=== PATIENT | female | born 1995 | race Caucasian/White ===

== ENCOUNTER 2024-06-15 03:55 | Outpatient (CLI) | payer BC, MEDICAID, SELFPAY ==
[2024-06-15] VITALS (12 sets, daily range): BP systolic 106–125; BP diastolic 71–76; PULSE 66–102; RESP 17; TEMP 36; O2SAT 96–99; BMI 31.7
[2024-06-15 05:13] LABS: Estmated Average Glucose 97
== END 2024-06-15 04:58 | disposition home or self-care (01) ==
LOC: OPOB 03:59 → OBGYN 04:02
PROVIDERS: Family Medicine
DX: O36.8190 Decreased fetal movements, unspecified trimester, not applicable or unspecified (principal); Z3A.00 Weeks of gestation of pregnancy not specified
CPT/HCPCS: 36415; 59025; 83036; 99211

== ENCOUNTER 2024-06-17 09:30 | Inpatient (IN) | payer BC, MEDICAID, SELFPAY ==
--- OUTSIDE RECORDS SUMMARY | 2024-06-15 02:30 | XMS_ITS | Encounter Summary ---
Author Organization [facility] Address [address] [place] [address] Care Team Providers Care Tung Nut Grower Name Role Phone Unavailable Primary Care Provider Unavailabl e Reason for Visit * Reason Comments Problem Patient is measuring past due date. Last heart rate was 141. Current heart rate 118. Patient denies any pain but has not felt the baby move since 2300 last night. This is the patient's 4th , patient has 3 living children. No issues with any of the others and children are all healthy. No pain or discomfort at this time. Encounter Details Date Type Department Care Team (Late st Contact Info) Description 06/15/2024 2:30 AM CDT - 06/15/2024 3:21 AM CDT Emergency [facility] Emergency Medicine [address] [place] [id number] Elver Springer MD [address] [place] [address] Absence of movement (Primary Dx); Presence of heart sounds in third trimester Discharge Disposition: Acute Care Hospital Social History Tobacco Use Types Packs/Day Years Used Date Smoking Tobacco: Never Smokeless Tobacco: Never Tobacco Cessation:Counseling Given: Not Answered Alcohol Use Standard Drinks/Week Comments Not Currently 0 (1 standard drink = 0.6 oz pur e alcohol) Feeling Safe Answer Date Recorded Are you in a relationship wi th someone who hurts you emotionally and/or physically? No 06/15/2024 Estimated Date of Delivery Comme nts Yes 06/10/2024 Sex and Gender Information Value Date Recorded Sex Assigned at Not on file Legal Sex Female 2:29 AM CDT Gender Identity Not on file Sexual Orientation Not on file documented as of this encounter Last Filed Vital Signs Vital Sign Reading Time Taken Comments Blood Pressure 133/88 06/15/2024 2:40 AM CDT Pulse - - Temperature 36.7 C (98 F) 06/15/2024 2:40 AM CDT Respiratory Rate 16 06/15/2024 2:40 AM CDT Oxygen Saturation 99% 06/15/2024 2:40 AM CDT Inhaled Oxygen Concentration - - Weight 100.4 kg (221 lb 6.4 oz) 06/15/2024 2:40 AM CDT Height 177.8 cm (5' 10 ) 06/15/2024 2:40 AM CDT Body Mass Index 31.77 06/15/2024 2:40 AM CDT documented in this encounter Medications at Time of Discharge famotidine (PEPCID) 20 mg tablet Take 20 mg by mouth 2 times daily. sertraline (ZOLOFT) 25 mg tablet Take 25 mg by mouth daily. documented as of this encounter ED Notes * Viola Prakash RN - 06/15/2024 3:20 AM CDT Patient transferred with transport via private vehicle. 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 * Viola Prakash RN - 06/15/2024 3:12 AM CDT Instructed to call Dr. Cornelius on her personal cell by KELLI Rodriguez at [facility] to give her a direct report. * Viola Prakash RN - 06/15/2024 2:44 AM CDT Sharlene James is a 29 y.o. female who arrives to the Emergency Department by private car. 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 Chief Complaint Patient presents with Problem Patient is measuring past due date. Last heart rate was 141. Current heart rate 118. Patient denies any pain but has not felt the baby move since 2300 last night. This is the patient's 4th , patient has 3 living children. No issues with any of the others and children are all healthy. No pain or discomfort at this time. Pain is 0/10. VSS, aaox4, STARK, behavior appropriate to circumstance, no acute distress at this time. Airway patent, self-maintained with even, non-labored respirations. Perfusion within normal limitsfor age. Skin color normal for ethnicity, warm, dry and intact. ID band present. Patient in bed in low position with wheels locked. Patient informed of plan of care. Patient verbalized understanding and in agreement with plan of care, all questions answered. Comfort measures offered. spouse at bedside at this time. Monitors on and audible. Patient placed on pulse ox and blood pressure monitoring. Call light at bedside. Patient encouraged to call with needs. Will continue to monitor. Weapons assessment performed. Education provided regarding facility weapon storage and securement policy. Sharlene James denied possession of any weapons or firearms at this time * Elver Springer MD - 06/15/2024 2:29 AM CDT HISTORY OF PRESENT ILLNESS This lady at 40+5 days weeks presents to the ER stating that since 2300 hrs., she has not felt movement. She denies vaginal bleeding or spontaneous rupture of membrane. She denies abdominal pain, chest pain, shortness of breath or fever. Here in the ER, heart Doppler was done and it was anywhere between 109 and 118. Patient gets her obstetric care at [facility] in [place]. She was last seen yesterday. PAST MEDICAL HISTORY REVIEWED MEDICAL: Patient has no past medical history on file. SURGICAL: Patient has no past surgical history on file. ALLERGIES Patient has no known allergies. PHYSICAL EXAM INITIAL VS BP: 133/88 (06/15/24 0240), Heart Rate: 91 bpm (06/15/24 0240), Resp: 16 (06/15/24 0240), Pulse: (not recorded), Temp: 98 ??F (36.7 ??C) (06/15/24239), Temp src: Oral (06/15/24239), SpO2: 99 % (06/15/24239), Height: 5' 10 (177.8 cm) (06/15/24239), Weight: 100.4 kg (221 lb 6.4 oz) (), BMI (Calculated): (!) 31.76 (06/15/24239) No LMP recorded. Patient is . Physical Exam Vitals and nursing note reviewed. Constitutional: General: She is not in acute distress. Appearance: Normal appearance. She is well-developed. She is not toxic-appearing. HENT: Head: Normocephalic and atraumatic. Eyes: Extraocular Movements: Extraocular movements intact. Conjunctiva/sclera: Conjunctivae normal. Cardiovascular: Rate and Rhythm: Normal rate and regular rhythm. Pulses: Normal pulses. Heart sounds: No murmur heard. Pulmonary: Effort: Pulmonary effort is normal. No respiratory distress. Breath sounds: Normal breath sounds. No rhonchi or rales. Abdominal: General: Bowel sounds are normal. Palpations: Abdomen is soft. Tenderness: There is no abdominal tenderness. Comments: Abdomen is gravid but nontender. FHT is 109-118. Musculoskeletal: Cervical back: Normal range of motion and neck supple. Right lower leg: No edema. Left lower leg: No edema. Skin: General: Skin is warm and dry. Neurological: General: No focal deficit present. Mental Status: She is alert and oriented to person, place, and time. Psychiatric: Behavior: Behavior normal. DIAGNOSTICS LAB: No data to display RADIOLOGY: No orders to display EKG: PROCEDURES Procedures MEDICAL DECISION MAKING AND PLAN OF CARE Medical Decision Making Clinical Scoring & Consults Medical decision making: History as above. Patient is 40 weeks +5 days and states that she has not had any movement since 2300 hrs. Doppler revealed heart rate of 109-118. Given that we have no application assistant in this facility, she will be transferred to [facility] immediately. Meanwhile, while we were getting the heart Doppler, patient noted that she felt some movement. Case discussed with Dr. Ojeda, application assistant on-call at [facility]. He accepted patient in transfer. Discharge Medication List as of 06/15/2024 3:16 AM CONTINUE these medications which have NOT CHANGED Details famotidine (PEPCID) 20 mg tablet Take 20 mg by mouth 2 times daily. sertraline (ZOLOFT) 25 mg tablet Take 25 mg by mouth daily. LAST VS BP: 133/88 (06/15/24239), Heart Rate: 91 bpm (06/15/24239), Resp: 16 (06/15/24239), Pulse: (not recorded), Temp: 98 ??F (36.7 ??C) (06/15/24239), Temp src: Oral (06/15/24239), SpO2: 99 % (06/15/24239) CLINICAL IMPRESSION Final diagnoses: [O36.8190] Absence of movement (Primary) [Z34.93] Presence of heart sounds in third trimester DISPOSITION, EDUCATION AND MEDICATION RECONCILIATION Medications reconciled. See after visit summary for patient education on discharged patients. ED Disposition ED Disposition Transfer Condition Stable User Elver Springer MD Date/Time FriJun 15, 2024 2:55 AM Comment -- ATTESTATION STATEMENTS documented in this encounter Plan of Treatment Not on file documented as of this encounter Visit Diagnoses Diagnosis Absence of movement- Primary Presence of heart sounds in third trimester documented in this encounter
[2024-06-17] VITALS (33 sets, daily range): BP systolic 88–117; BP diastolic 52–80; PULSE 47–85; RESP 16; TEMP 36.2–36.9; O2SAT 98–99; BMI 31.1
--- OUTSIDE RECORDS SUMMARY | 2024-06-17 09:49 | XMS_ITS | Encounter Summary ---
Author Organization [facility] Address [address] [place]: Epic Prelude ADT [place] [address] Care Team Providers Care Pay Clerk Name Role Phone Unavailable Primary Care Provider Unavailabl e Encounter Details Date Type Department Care Team (Latest Contact Info) Description 06/15/2024 Travel Social History Tobacco Use Types Packs/Day Years Used Date Smoking Tobacco: Never Smokeless Tobacco: Never Alcohol Use Standard Drinks/Week Comments Not Currently [...] on file documented as of this encounter Plan of Treatment Not on file documented as of this encounter Visit Diagnoses Not on filedocumented in this encounter
--- OUTSIDE RECORDS SUMMARY | 2024-06-17 09:49 | XMS_ITS | Clinical Summary ---
Author Organization [facility] Address [address] [place] [address] Phone Care Team Providers Care Instruction Assistant Principal Name Role Phone Unavailable Primary Care Provider Unavailabl e Allergies No known active allergies Medications famotidine (PEPCID) 20 mg tablet Take 20 mg by mouth 2 times daily. Active sertraline (ZOLOFT) 25 mg tablet Take 25 mg by mouth daily. Active Encounters Date Type Department Care Team Description 06/15/2024 2:30 AM CDT - 06/15/2024 3:21 AM CDT Emergency [facility] Emergency Medicine [address] [place] [address] Elver Springer MD Absence of movement (Primary Dx); Presence of heart sounds in third trimester Discharge Disposition: Acute Care Hospital 06/15/2024 Travel from Last 3 Months Social History Tobacco Use Types Packs/Day Years [...] on file Sexual Orientation Not on file Last Filed Vital Signs Vital Sign Reading [...] Mass Index 31.77 06/15/2024 2:40 AM CDT Plan of Treatment Health Maintenance Due Date Last Done Comments DTAP/TDAP/TD VACCINES (1 - Tdap) 02/19/2016 HEPATITIS B VACCINES (1 of 3 - 19+ 3-dose series) 02/19/2016 CERVICAL CANCER SCREENING 2018 HPV/Cotest (21-29) 2018 PAP SMEAR 2018 INFLUENZA VACCINE (#1) 2023 HPV VACCINES Aged Out No longer eligi ble based on patient's age to complete this topic RSV VACCINE (60+ or ) (No Doses Required) Completed
[2024-06-17 10:32] LABS: Basophils % 0.4 %; Eosinophils # 0.1 10^3/uL (0.0-0.8); Eosinophils % 1.6 %; Hematocrit 35.6 % (36-47); Lymphocytes # 2.1 10^3/uL (0.8-4.8); Lymphocytes % 27.5 %; Mean Corpuscular HGB Conc 30.3 g/dL (30-55); Mean Corpuscular Hemoglobin 26.5 pg (27-33); Mean Corpuscular Volume 87.3 fl (85-98); Mean Platelet Volume 10.5 fL (7.4-10.4); Monocytes # 0.5 10^3/uL (0.2-0.9); Monocytes % 6.5 %; Neutrophils # 4.79 10^3/uL (1.8-7.7); Neutrophils % 63.6 %; Nucleated Red Blood Cells % 0 %; Platelet Count 262 10^3/cmm (157-399); Red Blood Count 4.08 10^6/uL (3.85-5.65); Red Cell Distribution Width 15.1 % (12.1-15.1); White Blood Count 7.53 10^3/uL (3.29-11.43)
[2024-06-17] MEDS: ceFAZolin 2,000 mg SDV 2000 MG IVP (10:50)
[2024-06-17] MEDS: famotidine 20 mg/2 mL INJ IVP (10:50)
[2024-06-17] MEDS: sodium chloride 0.9% 1,000 ML 999 ML IV (10:50)
[2024-06-17] MEDS: sodium chloride 0.9% 1,000 ML 125 ML IV (11:45)
--- NOTE | 2024-06-17 11:53 | P.HP_ITS ---
Providers/Chief Complaint 2 Admitting Physician: Velma Cornelius MD Primary Care Provider: Velma Cornelius MD Chief Complaint: Need ID/INS History of Present Illness Sharlene James is a 29 year old female G4, P3 at 41 weeks 0 days gestation who is here for scheduled section secondary to macrosomia and postdates. Risk benefits and alternatives of trial of labor versus scheduled section were discussed with her and her yesterday. They wish to proceed with section for baby safety. The was measuring 4336 g and that is with a modified abdominal circumference of 37.9cm. The abdominal circumference was slightly larger than that but any larger measurements would have kicked out the calculations for estimated weight. The patient and her are aware that ultrasound measurements this far in the may not be very accurate and it is possible that the weight estimation is off by a large degree. They would still like to err on the side of caution for The patient was a late transfer to [facility] for care at approximately 23-1/2 weeks gestation. She failed to do her glucose tolerance test. She failed to do 4 times daily glucose testing and lieu of the glucose tolerance test. She failed to do her hemoglobin A1c when it was first requested of her. She failed to keep regular appointments. She failed to do her epidural consult. She refused Pap smear. A hemoglobin A1c was obtained on her couple days ago and it was 5.0 Review of Systems 2 Narrative: The patient denies any bleeding, regular contractions, loss of fluid. She has good movement. Medications/Allergies Home Medications ?Medication ?Instructions ?Recorded ?Confirmed ?Last Taken ?Type famotidine 20 mg tablet 20 mg PO BID 06/15/2406/16/24 20:00 History sertraline 25 mg tablet 25 mg PO DAILY 06/15/24 04/11/1106/16/24 20:00 History Allergies Allergy/AdvReac Type Severity Reaction Status Date / Time No Known Allergies Allergy Verified 06/15/24 04:18 PFSH Acute 2 Female Reproductive History: : 4 Para: 3 Other female reproductive history: First 7 pound 10 ounce female . Second 8 pound 8 ounce male . Third 7 pound 8 ounce male . Patient had gestational diabetes mellitus with her first but was told to just monitor diet. She reported a history of bleeding and a history of retained placenta with #2. Vitals/I&O/Wt Last Vital Signs Temp 97.2 F L 06/17/24 10:56 Pulse 68 06/17/24 11:34 BP 113/75 06/17/24 11:34 O2 Del Method Room Air 06/17/24 10:15 Weight last 48 hrs Weight 98.43 kg Weight 98.43 kg Physical Exam 2 Narrative: Alert and oriented, no acute distress, heart regular rate and rhythm, lungs clear to auscultation bilaterally, abdomen is gravid soft and nontender, extremities have trace edema but no calf tenderness Data 06/17/24 10:15 A&P Assessment and plan (1) macrosomia affecting management of mother, antepartum: After long in office discussion, the patient and her spouse have decided on section for macrosomia. I believe this is a good decision given the estimated weight which is an underestimation also given the large abdominal circumference. Patient did not do her glucose testing during her so it is unknown if she had intermittent hyperglycemia, but her overall hemoglobin A1c was 5.0 as of 2 days ago. (2) Post term at 41 weeks gestation: PDMP PDMP Reviewed: Not Reviewed Attestations 2 Medical Necessity Statement*: Scheduled surgery and routine care Coding Level of Care Code Acute Code for Chg Fwd Diagnoses macrosomia affecting management of mother, antepartum O36.60X0 Post term at 41 weeks gestation O48.0; Z3A.41
--- NOTE | 2024-06-17 12:13 | ANES.PREANE2 ---
Pre-Anesthetic Assessment Height/Weight: Height 1.78 m Weight 98.43 kg Temp Pulse BP O2 Del Method 97.2 F L 85 115/80 Room Air 06/17/24 10:56 06/17/24 12:04 06/17/24 12:04 06/17/24 10:15 Preop Diagnosis: Macrosomia Operation Date: 06/17/24 12:00 Proposed Procedures p Section 21135, P08.1(Not Applicable) - Velma Cornelius MD Was Beta Marcela taken within 24 hours: N/A Was Clonidine taken within 24 hours: N/A Last intake: Intake Last Liquid Date 06/17/24 Last Liquid Time 09:30 Last Solid Date 06/16/24 Last Solid Time 17:00 Social No alcohol and No tobacco Exam alert, oriented x 3, clear to auscultation bilaterally and regular rate & rhythm Airway Submandibular: within normal limits Cervical ROM: within normal limits Mallampati: Class II Dentition: full History/ROS No significant history except as noted and No significant complaints Pulmonary None reported CV/HEM None reported None reported Hepatic None reported GI None reported Metabolic None reported Musc/skel None reported Neuropsych None reported Anesthetic Plan ASA status: 2 Anesthesia: Anesthesia Evaluation and Regional (specify below) Other: SAB Risk of > 500 ml blood loss (7ml/kg in children): No Medications/Allergies Home Medications ?Medication ?Instructions ?Recorded ?Confirmed ?Last Taken ?Type famotidine 20 mg tablet 20 mg PO BID 06/15/24 06/15/24 06/16/24 20:00 History sertraline 25 mg tablet 25 mg PO DAILY 06/15/24 06/15/24 06/16/24 20:00 History Allergies Allergy/AdvReac Type Severity Reaction Status Date / Time No Known Allergies Allergy Verified 06/15/24 04:18 Current Medications Generic Name Dose Route Start Last Admin Trade Name Freq PRN Reason Stop Dose Admin Sodium Chloride 1,000 mls @ 125 mls/hr 06/17/24 10:30 06/17/24 11:45 Sodium Chloride 0.9% IV 125 mls/hr .Q8H MELISSA Administration Sodium Chloride 1,000 mls @ 999 mls/hr 06/17/24 10:22 06/17/24 10:50 Sodium Chloride 0.9% IV 999 mls/hr .Q1H1M PRN Administration Per L&D Rescitation Protocol [facility] Anesthesia Female Reproductive History : 4 Para: 3 Data Anesthesia 06/17/24 10:15 Short CBC 06/17/24 Range/Units 10:15 WBC 7.53 (3.29-11.43) 10^3/uL Hgb 10.80 L (11.27-16.99) g/dL Hct 35.6 L (36-47) % MCV 87.3 (85-98) fl Plt Count 262 (157-399) 10^3/cmm Neut % (Auto) 63.6 % Neut # (Auto) 4.79 (1.8-7.7) 10^3/uL Blood Bank 06/17/24 10:15 Blood Type AB Positive Rho(D) Type Rh positive Antibody Screen Negative
--- NOTE | 2024-06-17 13:16 | P.OP_ITS ---
Operative Report Date of procedure: June 17, 2024 Pre-op diagnosis: macrosomia at 41 weeks 0 days gestation Procedure done: Primary low-transverse section Specimens removed/disposition: Vertex male weight 4090 g, 9 pounds 0 ounces, Apgars 9 and 9 Surgeon: Velma Cornelius MD Estimated blood loss (mL): 500 IV fluids (mL): 1,000 Urine output (mL): 20 Complications: None Procedure: After informed consent the patient was taken to the OR where spinal anesthesia was administered. She was prepped and draped in normal sterile fashion in rajeev zulma supine position with a left lateral tilt. After adequate spinal anesthesia was verified a Pfannenstiel skin incision was made and carried through to the underlying layer of fascia sharply. The fascial incision was then extended laterally using the Mayos. The fascia was grasped with Gracie clamps and the underlying rectus muscles were dissected off taking care to avoid injury to the underlying tissue. The peritoneum was entered bluntly using a hemostat. The surgical site was manually stretched. The bladder blade was inserted. The vesicouterine peritoneum was identified and entered sharply using the Metzenbaums. The bladder flap was created digitally. The bladder blade was then reinserted. Uterine incision was made in a transverse fashion in the lower uterine segment. Amniotic rupture of membranes was done sharply with the scalpel and revealed a copious amount of clear fluid. The infant's head was delivered atraumatically and the rest of the infant immediately followed. The was then bulb suctioned through the mouth and naris. The cord was clamped and cut. The infant was handed to the waiting pediatric team. The placenta was removed using fundal pressure. The uterus was then exteriorized from the abdomen and a dry sponge was used to clear the uterus of clots and debris. Uterine incision was then repaired using 0 chromic in a running locked fashion. A second layer of the same suture was used in an imbricating manner. The uterus was then returned to the abdomen. Irrigation was used to clear the gutters of clots and debris and the uterine incision was reinspected for hemostasis. Attempt was made to reapproximate to the peritoneum using 4-0 Vicryl in a running fashion but the peritoneum kept tearing. The rectus muscles were gently reapproximated using 1 ckojqn-km-ranen stitch. The said fascial tissue was inspected for hemostasis and any small bleeders were coagulated using the Bovie. There was 1 left rectus muscle site that required holding pressure for about 3 minutes. Once it was confirmed to be hemostatic the the fascia was then reapproximated using 0 Vicryl in a running fashion. The subcutaneous tissue was then irrigated. Any small bleeders were coagulated using the Bovie. The subcutaneous tissue was reapproximated using 4-0 Vicryl in a running fashion. The skin was then reapproximated using 4-0 Vicryl in a running fashion on a Brandon needle. Steri-Strips and pressure bandage were applied and patient went to recovery in good condition. Sponge instrument and needle counts were correct.
--- NOTE | 2024-06-17 14:18 | ANE.PACU2 ---
Inpatient post-anesthesia follow up: Airway intact: Yes Vital signs: Temperature 98.4 F Pulse Rate 72 Respiratory Rate 16 Blood Pressure 98/59 Pulse Oximetry Oxygen Delivery Me thod Room Air Oxygen Flow Rate Fraction of Inspir ed Oxygen Hydration adequate: Yes Nausea and vomiting: No Pain level: 1 Mental status: Baseline
--- NOTE | 2024-06-17 18:44 | PC.NURSE ---
Esther beckman rn got patient up to chair for me, and she did well, complete linen change done.
[2024-06-17] MEDS: ketorolac 30 mg/mL INJ IVP (19:20)
[2024-06-17] MEDS: HYDROcodone-acetaminophen 5-325 mg Tablet PO (19:21)
--- NOTE | 2024-06-17 22:44 | PC.NURSE ---
PT requested to have something to eat that was not clear fluids. This RN educated the PT on the reasons and importance of passing gas before transitioning back into a regular diet, along with the safety concerns if failing to do so.
[2024-06-18] MEDS: HYDROcodone-acetaminophen 5-325 mg Tablet PO ×4 (00:47→20:19)
[2024-06-18 01:04] LABS: Hematocrit 26.4 % (36-47); Mean Corpuscular HGB Conc 31.1 g/dL (30-55); Mean Corpuscular Hemoglobin 26.1 pg (27-33); Mean Corpuscular Volume 84.1 fl (85-98); Mean Platelet Volume 9.7 fL (7.4-10.4); Platelet Count 225 10^3/cmm (157-399); Red Blood Count 3.14 10^6/uL (3.85-5.65); White Blood Count 9.69 10^3/uL (3.29-11.43)
[2024-06-18 03:00] VITALS: TEMP 36.6; TEMP 36.7
[2024-06-18] MEDS: ibuprofen 800 mg tablet PO ×4 (03:10→20:19)
[2024-06-18 03:11] VITALS: BP 101/66; PULSE 72
--- NOTE | 2024-06-18 05:44 | PC.NURSE ---
06/18/24 0445 This RN went to PT and attempted to remove catheter , PT declined at this time and requested to wait until the baby was done feeding. This RN told the PT to hit the call light when she was ready.
[2024-06-18 07:36] VITALS: BP 109/72; PULSE 64
[2024-06-18] MEDS: docusate sodium 100 mg Capsule PO ×2 (08:17→15:21)
[2024-06-18] MEDS: ferrous sulfate EC 325 mg Tablet PO ×2 (08:17→15:21)
[2024-06-18] MEDS: PRENATAL VIT NO.130/IRON/FOLIC 1 EACH TABLET PO (08:17)
[2024-06-18 12:21] VITALS: BP 116/68; PULSE 86
--- NOTE | 2024-06-18 14:57 | P.PN_ITS ---
Subjective 2 Subjective: Mother is ambulating and has just passed flatus. Her pain is controlled and she has already showered today. Vitals/I&O/Wt Last Vital Signs Temp 98.0 F 06/18/24 03:00 Pulse 86 06/18/24 12:21 Resp 16 06/17/24 13:50 BP 116/68 06/18/24 12:21 Pulse Ox 99 06/17/24 13:50 O2 Del Method Room Air 06/17/24 10:15 06/17/24 06/18/24 06/18/24 22:59 06:59 14:59 Intake Total 1100 / 4100 950 / 5050 Output Total 475 / 1015 Balance 1100 / 3560 475 / 4035 Weight last 48 hrs Weight 98.43 kg Weight 98.43 kg Physical Exam 2 Narrative: Alert and oriented, sitting up in bedside chair, heart regular rate and rhythm, lungs clear to auscultation bilaterally, abdomen is soft with appropriate postoperative tenderness, incision is clean dry and intact with Steri-Strips in place, extremities have trace edema but no calf tenderness Urinary Catheter Management: Latex Free: Cath Placed During This Visit: yes, but has since been removed by the nurse Reason for Continuing Indwelling Catheter: Decision to DC Catheter Urinary Catheter Date of Insertion: 06/17/24 Urinary Catheter Time of Insertion: 12:20 Date Urinary Catheter Removed: 06/18/24 Time Urinary Catheter Discontinued: 05:50 Data 06/18/24 00:45 A&P Assessment and plan (1) Status post primary low transverse section: Routine and postoperative care. Patient will likely be discharged home tomorrow if still doing well. PDMP PDMP Reviewed: Not Reviewed Attestations 2 Medical Necessity Statement*: Routine and postoperative care. Coding Level of Care Code Acute Code for Chg Fwd Diagnoses Status post primary low transverse section Z98.891
[2024-06-18 15:59] VITALS: BP 107/59; PULSE 79
[2024-06-18 22:06] VITALS: BP 112/64; PULSE 67
[2024-06-19] MEDS: HYDROcodone-acetaminophen 5-325 mg Tablet PO ×4 (00:28→14:47)
[2024-06-19 04:29] VITALS: BP 106/55; PULSE 78
[2024-06-19 10:06] VITALS: BP 127/68; PULSE 98; RESP 18
[2024-06-19] MEDS: PRENATAL VIT NO.130/IRON/FOLIC 1 EACH TABLET PO (10:15)
[2024-06-19] MEDS: docusate sodium 100 mg Capsule PO (10:15)
[2024-06-19] MEDS: ibuprofen 800 mg tablet PO ×2 (10:15→14:47)
--- NOTE | 2024-06-19 12:00 | PM.DCS ---
Discharge Providers Date of Admission: 06/17/24 09:30 Date of Discharge: June 19, 2024 Attending Provider at Admission: Velma Cornelius MD Attending Provider at Discharge: Velma Cornelius MD Primary Care Provider: Velma Cornelius MD Diagnoses at Discharge Discharge Diagnosis (1) Status post primary low transverse section: Status: Acute Reason for Visit Reason for Visit: Need ID/INS Hospital Course Hospital Course This is a 29-year-old G4 now P4 who was admitted for schedule secondary to macrosomia and postdates at 41 weeks 0 days gestation. The patient was noncompliant with obtaining her glucose tolerance testing, obtaining 4 times daily blood sugars, and making recommended OB visits. At 40 weeks 4 days gestation her fundal height was measuring large so she underwent a growth ultrasound which revealed estimated weight greater than the 95th percentile and an abdominal circumference greater than 37 cm. Patient and her and elected to pursue scheduled section which she underwent without any complications. She is postop day #2 doing well. She is ambulating, tolerating a regular diet, has good pain control and is comfortable with discharge home. Physical Exam Narrative: Alert and oriented, sitting in bedside chair, heart regular rate and rhythm, lungs clear to auscultation bilaterally, abdomen is soft with appropriate postoperative tenderness, incision and close is clean dry and intact with Steri-Strips in place, extremities have trace edema but no calf tenderness Urinary Catheter Management: Latex Free: Cath Placed During This Visit: yes, but has since been removed by the nurse Reason for Continuing Indwelling Catheter: Decision to DC Catheter Urinary Catheter Date of Insertion: 06/17/24 Urinary Catheter Time of Insertion: 12:20 Date Urinary Catheter Removed: 06/18/24 Time Urinary Catheter Discontinued: 05:50 Discharge Data Studies Completed and Pending Laboratory Results WBC 9.69 10^3/uL (3.29-11.43) 06/18/24 00:45 RBC 3.14 10^6/uL (3.85-5.65) L 06/18/24 00:45 Hgb 8.20 g/dL (11.27-16.99) L 06/18/24 00:45 Hct 26.4 % (36-47) L 06/18/24 00:45 MCV 84.1 fl (85-98) L 06/18/24 00:45 MCH 26.1 pg (27-33) L 06/18/24 00:45 MCHC 31.1 g/dL (30-55) 06/18/24 00:45 RDW 15.0 % (12.1-15.1) 06/18/24 00:45 Plt Count 225 10^3/cmm (157-399) 06/18/24 00:45 MPV 9.7 fL (7.4-10.4) 06/18/24 00:45 Neut % (Auto) 63.6 % 06/17/24 10:15 Lymph % (Auto) 27.5 % 06/17/24 10:15 Mccracken % (Auto) 6.5 % 06/17/24 10:15 Eos % (Auto) 1.6 % 06/17/24 10:15 Baso % (Auto) 0.4 % 06/17/24 10:15 Neut # (Auto) 4.79 10^3/uL (1.8-7.7) 06/17/24 10:15 Lymph # (Auto) 2.1 10^3/uL (0.8-4.8) 06/17/24 10:15 Mccracken # (Auto) 0.5 10^3/uL (0.2-0.9) 06/17/24 10:15 Eos # (Auto) 0.1 10^3/uL (0.0-0.8) 06/17/24 10:15 Baso # (Auto) 0.0 10^3/uL (0.0-0.1) 06/17/24 10:15 Nucleated RBC % (auto) 0 % 06/17/24 10:15 Nucleated RBCs # 0.0 /100WBC 06/17/24 10:15 Blood Type AB Positive 06/17/24 10:15 Rho(D) Type Rh positive 06/17/24 10:15 Antibody Screen Negative 06/17/24 10:15 Vitals Last Vital Signs Temp 98.0 F 06/18/24 03:00 Pulse 98 06/19/24 10:06 Resp 18 06/19/24 10:06 BP 127/68 06/19/24 10:06 Pulse Ox 99 06/17/24 13:50 O2 Del Method Room Air 06/17/24 10:15 Discharge Plan Discharge Patient Disposition: Home Condition: Stable Prescriptions: New docusate sodium 100 mg Capsule 100 mg PO BID Qty: 60 0RF Rx Instructions: OTC ibuprofen 800 mg Tablet 800 mg PO TID PRN (Reason: Abdominal Discomfort) Qty: 40 0RF hydrocodone-acetaminophen 5-325 mg Tablet 1 - 2 tab PO Q4H PRN (Reason: Moderate To Severe Pain) Qty: 15 0RF Continued famotidine 20 mg Tablet 20 mg PO BID sertraline 25 mg Tablet 25 mg PO DAILY Discharge Orders: Discharge Order (Routine); Ordered 06/19/24 Ordered By: Velma Cornelius Referrals: Velma Cornelius MD [Primary Care Provider, [facility]] - 06/22/24 2:45 pm Discharge Diet: Usual diet Discharge Activity: Limit activity as instructed Patient Instructions: Depression (DC), Opioid Safety (DC), Preeclampsia and Eclampsia After Delivery (GEN), Hemorrhage (DC), OB WHC, OB Discharge Report, OB Food/Drug Interaction Guide, OB Care at Home, Opioid Safety, Abnormal Bleeding Activity Restrictions/Additional Instructions: No lifting greater than 10 pounds for 2 weeks. Nothing per vagina for 6 weeks. Keep incision clean and dry. Discharge Attestations Time Spent in Discharge Care*: less than 30 min Quality Metrics Clinical Quality Measures [ No reported AMI, CVA or VTE this stay] Coding Level of Care Code Acute Code for Chg Fwd Diagnoses Status post primary low transverse section Z98.891
[2024-06-19] MEDS: measles,mumps,rubella pf Vial (w/diluent) 0.5 ML SUBCUT (12:40)
[2024-06-19 15:16] VITALS: BP 139/68; PULSE 103; RESP 18; TEMP 36.9
[2024-06-19 15:40] VITALS: BP 139/68; PULSE 103; RESP 18; TEMP 36.9; O2SAT 98
== END 2024-06-19 15:35 | disposition home or self-care (01) | DRG 788 ==
PROVIDERS: Admitting Provider Family Medicine; PCP Family Medicine; Visit Provider Family Medicine
PROC: 10D00Z1 Extraction of Products of Conception, Low, Open Approach (ICD-10-PCS; CPT 59514; principal; 2024-06-17 12:00)
DX: O48.0 Post-term pregnancy (principal); Z3A.40 40 weeks gestation of pregnancy; Z37.0 Single live birth; Z91.199 Patient's noncompliance with other medical treatment and regimen due to unspecified reason; O36.63X0 Maternal care for excessive fetal growth, third trimester, not applicable or unspecified
CPT/HCPCS: 36415; 51702; 59025; 59409; 85025; 85027; 86850; 86900; 90707; 96372; 96374; 99211; J0690; J1885; J2274; J2371; J2405; J3010; J3490; J7030; J9999